=== PATIENT | female | born 1995 | race Caucasian/White ===

== ENCOUNTER 2022-01-04 21:27 | Emergency (ER) | payer OTHER, SELFPAY ==
[2022-01-04 21:53] VITALS: BP 166/103; PULSE 90; RESP 14; TEMP 36.3; O2SAT 100
--- NOTE | 2022-01-04 22:37 | ED.RECABL ---
HPI - Recheck/Abnormal Lab/Rx General Chief Complaint: Recheck/Abnormal Lab/Rx Stated Complaint: uds Time Seen by Provider: 01/04/22 21:57 History of Present Illness HPI narrative: 26-year-old female presents to the emergency room requesting a drug screen. Patient is a [employer] and was told to go to an outside laboratory for drug testing. Patient does admit that she was recently discontinued on her Adderall and is recently started on Vyvanse. Patient states while at her clinicals, those that she is in clinical with were concerned because she was diaphoretic, having trouble concentrating and frequently leaving her OR room 2 stock. She states that her javascript programmer was concerned that she was diverting medications. Related Data Allergies Allergy/AdvReac Type Severity Reaction Status Date / Time Penicillins Allergy Hives Verified 01/04/22 22:09 Review of Systems Review of Systems: CONSTITUTIONAL: Denies fever, chills, or sweats. EYES: Denies visual changes, redness, or discharge. ENT: Denies rhinorrhea, congestion, sore throat, or otalgia. CARDIOVASCULAR: Denies chest pain, palpitations, or edema. RESPIRATORY: Denies cough or dyspnea. GASTROINTESTINAL: Denies abdominal pain, nausea, vomiting, or diarrhea. GENITOURINARY: Denies dysuria or hematuria. SKIN: Denies rash or itching. MUSCULOSKELETAL: Denies back pain, joint pain, or myalgia. NEUROLOGIC: Denies headache, numbness, dizziness, or weakness. PSYCHIATRIC: Denies anxiety or depression. Exam Narrative: GENERAL: Well-appearing, well-nourished, no physical limitations, and in no acute distress. HEAD: Normocephalic, atraumatic. EYES: Conjunctivae normal, PERRLA and EOMI. CHEST: Clear to auscultation. No respiratory distress. No wheezes rales or rhonchi. . HEART: Regular rate and rhythm. No murmur heard. Normal peripheral pulses. EXTREMITIES: Normal range of motion. No edema. No clubbing or cyanosis SKIN: Warm, dry, no rash. No noted wounds NEURO: No focal deficits. Alert and oriented x3. MAEW. CN's II-XI intact bilaterally, normal gait PSYCH: Cooperative. Normal mood and affect. Course Vital Signs Vital signs: Vital Signs Temperature 36.3 C L 01/04/22 21:53 Pulse Rate 90 01/04/22 21:53 Respiratory Rate 14 01/04/22 21:53 Blood Pressure 166/103 H 01/04/22 21:53 Pulse Oximetry 100 01/04/22 21:53 Oxygen Delivery Room Air 01/04/22 21:53 Temperature 36.3 C L 01/04/22 21:53 Pulse Rate 90 01/04/22 21:53 Respiratory Rate 14 01/04/22 21:53 Blood Pressure 166/103 H 01/04/22 21:53 Pulse Oximetry 100 01/04/22 21:53 Oxygen Delivery Room Air 01/04/22 21:53 MDM - Recheck/Abnormal Lab/Rx Lab Data Labs: Lab Results 01/04/22 01/04/22 Range/Units 22:31 22:31 Salicylates < 1.0 L (2-20) mg/dL Urine Opiates Screen Negative (Negative) Urine Methadone Screen Negative (Negative) Acetaminophen < 10 L (10-30) ug/mL Ur Barbiturates Screen Negative (Negative) Ur Phencyclidine Scrn Negative (Negative) Ur Amphetamine Screen Negative (Negative) U Benzodiazepines Scrn Negative (Negative) Urine Cocaine Screen Negative (Negative) U Cannabinoids Screen Negative (Negative) Ethyl Alcohol < 10 (<10) mg/dL Discharge Plan Discharge Clinical Impression: Encounter for laboratory test Patient Disposition: Home, Self-Care Condition: Stable Instructions: Antibiotic Form, Normal Exam (ED) Follow-up/Referrals: PHYSICIAN,TUTORIAL LABORATORY SUPERVISOR [Primary Care Provider] - Time of Disposition: 23:11
[2022-01-04 22:58] LABS: Acetaminophen < 10 ug/mL (10-30); Ethanol < 10 mg/dL (<10); Salicylate < 1.0 mg/dL (2-20)
[2022-01-04 23:05] LABS: Amphetamine Screen Urine Negative (Negative); Barbiturate Screen Urine Negative (Negative); Benzodiazepines Screen Urine Negative (Negative); Cannabinoid Screen Urine Negative (Negative); Cocaine Screen Urine Negative (Negative); Methadone Screen Urine Negative (Negative); Opiate Screen Urine Negative (Negative); Phencyclidine Screen Urine Negative (Negative)
== END 2022-01-04 23:20 | disposition home or self-care (01) ==
PROVIDERS: Emergency Provider Nurse Practitioner Family
DX: Z02.89 Encounter for other administrative examinations (principal); Z79.899 Other long term (current) drug therapy
CPT/HCPCS: 36415; 80307; 99283